=== PATIENT | female | born 1985 | race Caucasian/White ===

== ENCOUNTER 2018-04-17 00:16 | Emergency (ER) | payer SELFPAY ==
--- NOTE | 2018-04-17 03:47 | EDM.PDOCBH ---
<Micaela Oliveira Keon - Last Filed: 04/17/18 06:55> ED HPI GENERAL MEDICAL PROBLEM - General Chief Complaint: Behavioral/Psych Stated Complaint: [facility] Time Seen by Provider: 04/17/18 00:37 Source of Information: Reports: Patient History Limitations: Reports: No Limitations - History of Present Illness INITIAL COMMENTS - FREE TEXT/NARRATIVE: Patient is a 32-year-old who presents to emergency department with suicidal thoughts. Patient states she had been visiting a friend in an [place] she spent 9-10 days in the psychiatric unit there for hallucinations. Patient was on a bus on her way back home to [place] when she told the regional flatbed truck driver she was feeling suicidal. The regional flatbed truck driver called 911 and she was brought to the emergency department. He had patient states she is hearing voices and those places are reviewed repeatedly saying her name. She states she feels like she would kill herself if she left here. She has a plan and that she would take all of her psychiatric medications. Patient has had 1 prior suicide attempt. Patient denies being homicidal at this time. Patient denies any fever chills headache chest pain shortness of breath coughing abdominal pain nausea vomiting diarrhea rashes itches or new joint pains. Patient has a known complicated psychiatric history including PTSD depression bipolar disorder as diagnoses. Onset: Gradual Duration: Week(s):, Intermittent Improves with: Reports: Medication Context: Reports: Other (see hpi) Associated Symptoms: Reports: No Other Symptoms - Related Data Allergies Allergy/AdvReac Type Severity Reaction Status Date / Time fluphenazine [From Prolixin] Allergy Other Verified 04/17/18 00:22 haloperidol [From Haldol] Allergy Other Verified 04/17/18 00:22 hydroxyzine [From Vistaril] Allergy Other Verified 04/17/18 00:22 olanzapine [From Zyprexa] Allergy Other Verified 04/17/18 00:22 risperidone Allergy Other Verified 04/17/18 00:22 Home Meds: Home Meds ARIPiprazole [Abilify] 20 mg PO DAILY 04/17/18 [History] Fluconazole [Diflucan] 150 mg PO ONETIME 04/17/18 [History] LORazepam [Ativan] 2 mg PO DAILY 04/17/18 [History] Sulfamethoxazole/Trimethoprim [Bactrim Ds Tablet] 1 each PO Q12HR 10 Days #20 tablet 04/17/18 [Rx] traZODone HCl [Trazodone HCl] 200 mg PO BEDTIME 04/17/18 [History] Past Medical History Psychiatric History: Reports: Anxiety, Bipolar, Depression, PTSD - Past Surgical History Dermatological Surgical History: Reports: Skin Graft Social & Family History - Family History Family Medical History: Noncontributory - Tobacco Use Smoking Status *Q: Current Every Day Smoker Years of Tobacco use: 3 Packs/Tins Daily: 0.5 - Caffeine Use Caffeine Use: Reports: None - Recreational Drug Use Recreational Drug Use: No ED ROS GENERAL - Review of Systems Review Of Systems: See Below Constitutional: Reports: No Symptoms HEENT: Reports: No Symptoms Respiratory: Reports: No Symptoms Cardiovascular: Reports: No Symptoms Endocrine: Reports: No Symptoms GI/Abdominal: Reports: No Symptoms : Reports: No Symptoms Musculoskeletal: Reports: No Symptoms Skin: Reports: No Symptoms Neurological: Reports: No Symptoms Psychiatric: Reports: Anxiety, Depression, Suicidal Ideation. Denies: Homicidal Ideation Hematologic/Lymphatic: Reports: No Symptoms Immunologic: Reports: No Symptoms ED EXAM, BEHAVIORAL HEALTH - Physical Exam Exam: See Below Exam Limited By: No Limitations General Appearance: Alert, WD/WN, No Apparent Distress Eye Exam: Bilateral Eye: PERRL Ears: Normal External Exam, Normal Canal, Hearing Grossly Normal Nose: Normal Inspection, No Blood Throat/Mouth: Normal Inspection, Normal Lips, Normal Gums, Normal Oropharynx, Normal Voice, No Airway Compromise Head: Atraumatic, Normocephalic Neck: Normal Inspection, Supple, Non-Tender, Full Range of Motion Respiratory/Chest: No Respiratory Distress, Lungs Clear, Normal Breath Sounds, No Accessory Muscle Use, Chest Non-Tender Cardiovascular: Normal Peripheral Pulses, Regular Rate, Rhythm, No Edema, No JVD , No Murmur GI/Abdominal: Normal Bowel Sounds, Soft, Non-Tender, No Organomegaly, No Distention, No Abnormal Bruit, No Mass Back Exam: Normal Inspection, Full Range of Motion, NT Extremities: Normal Inspection, Normal Range of Motion, Non-Tender, Normal Capillary Refill, No Pedal Edema Neurological: Alert, Normal Mood/Affect, CN II-XII Intact, Normal Cognition, Normal Gait, Normal Reflexes, No Motor/Sensory Deficits, Oriented x 3 Psychiatric: Alert, Oriented, Depressed Mood, Flat Affect, Withdrawn, Suicidal Plan, Suicidal Thoughts Skin Exam: Warm, Normal color COURSE, BEHAVIORAL HEALTH COMP - Course Vital Signs: Last Vital Signs Temp 36.3 C 04/17/18 09:22 Pulse 59 L 04/17/18 09:22 Resp 12 04/17/18 09:22 BP 116/70 04/17/18 09:22 Pulse Ox 96 04/17/18 09:22 Orders, Labs, Meds: Active Orders 24 hr Category Date Time Status CULTURE URINE [RM] Stat Lab 04/17/18 01:03 Received DRUG SCREEN, URINE [URCHEM] Stat Lab 04/17/18 02:05 Ordered UA W/MICROSCOPIC [URIN] Stat Lab 04/17/18 02:05 Ordered Laboratory Tests 04/17/18 04/17/18 04/17/18 Range/Units 00:47 00:47 00:47 WBC 9.79 (3.98-10.04) K/mm3 RBC 3.74 L (3.98-5.22) M/mm3 Hgb 11.7 (11.2-15.7) gm/L Hct 33.2 L (34.1-44.9) % MCV 88.8 (79.4-94.8) fl MCH 31.3 (25.6-32.2) pg MCHC 35.2 (32.2-35.5) g/dl RDW Std Deviation 41.3 (36.4-46.3) fL Plt Count 215 (182-369) K/mm3 MPV 8.9 L (9.4-12.3) fl Neut % (Auto) 58.8 (34.0-71.1) % Lymph % (Auto) 31.4 (19.3-51.7) % [place] % (Auto) 6.5 (4.7-12.5) % Eos % (Auto) 1.3 (0.7-5.8) Baso % (Auto) 0.3 (0.1-1.2) % Neut # (Auto) 5.75 (1.56-6.13) K/mm3 Lymph # (Auto) 3.07 (1.18-3.74) K/mm3 [place] # (Auto) 0.64 H (0.24-0.36) K/mm3 Eos # (Auto) 0.13 (0.04-0.36) K/mm3 Baso # (Auto) 0.03 (0.01-0.08) K/mm3 Manual Slide Review Normal smear Sodium 139 (136-145) mEq/L Potassium 3.5 (3.5-5.1) mEq/L Chloride 103 (98-107) mEq/L Carbon Dioxide 25 (21-32) mEq/L Anion Gap 14.5 (5-15) BUN 13 (7-18) mg/dL Creatinine 1.0 (0.55-1.02) mg/dL Est Cr Clr Drug Dosing 72.68 mL/min Estimated GFR (MDRD) > 60 (>60) mL/min BUN/Creatinine Ratio 13.0 L (14-18) Glucose 168 H (74-106) mg/dL Calcium 8.8 (8.5-10.1) mg/dL Total Bilirubin 0.2 (0.2-1.0) mg/dL AST 18 (15-37) U/L ALT 41 (14-59) U/L Alkaline Phosphatase 81 (46-116) U/L Total Protein 7.3 (6.4-8.2) g/dl Albumin 3.6 (3.4-5.0) g/dl Globulin 3.7 gm/dL Albumin/Globulin Ratio 1.0 (1-2) TSH 3rd Generation 3.526 (0.358-3.74) uIU/mL HCG, Qual (NEGATIVE) Urine Color (Yellow) Urine Appearance (Clear) Urine pH (5.0-8.0) Ur Specific [place] (1.005-1.030) Urine Protein (Negative) Urine Glucose (UA) (Negative) Urine Ketones (Negative) Urine Occult Blood (Negative) Urine Nitrite (Negative) Urine Bilirubin (Negative) Urine Urobilinogen (0.2-1.0) Ur Leukocyte Esterase (Negative) Urine RBC (0-5) /hpf Urine WBC (0-5) /hpf Ur Epithelial Cells (0-5) /hpf Urine Bacteria (FEW) /hpf Urine Mucus (FEW) /hpf Urine Other Urine Opiates Screen (NEGATIVE) Ur Buprenorphine Scrn (NEGATIVE) Ur Oxycodone Screen (NEGATIVE) Urine Methadone Screen (NEGATIVE) Ur Propoxyphene Screen (NEGATIVE) Ur Barbiturates Screen (NEGATIVE) Ur Tricyclics Screen (NEGATIVE) Ur Phencyclidine Scrn (NEGATIVE) Ur Amphetamine Screen (NEGATIVE) U Methamphetamines Scrn (NEGATIVE) U Benzodiazepines Scrn (NEGATIVE) U Cocaine Metab Screen (NEGATIVE) U Marijuana (THC) Screen (NEGATIVE) Ethyl Alcohol 0.00 (0.00) gm% 04/17/18 04/17/18 04/17/18 Range/Units 00:47 02:05 02:05 WBC (3.98-10.04) K/mm3 RBC (3.98-5.22) M/mm3 Hgb (11.2-15.7) gm/L Hct (34.1-44.9) % MCV (79.4-94.8) fl MCH (25.6-32.2) pg MCHC (32.2-35.5) g/dl RDW Std Deviation (36.4-46.3) fL Plt Count (182-369) K/mm3 MPV (9.4-12.3) fl Neut % (Auto) (34.0-71.1) % Lymph % (Auto) (19.3-51.7) % [place] % (Auto) (4.7-12.5) % Eos % (Auto) (0.7-5.8) Baso % (Auto) (0.1-1.2) % Neut # (Auto) (1.56-6.13) K/mm3 Lymph # (Auto) (1.18-3.74) K/mm3 [place] # (Auto) (0.24-0.36) K/mm3 Eos # (Auto) (0.04-0.36) K/mm3 Baso # (Auto) (0.01-0.08) K/mm3 Manual Slide Review Sodium (136-145) mEq/L Potassium (3.5-5.1) mEq/L Chloride (98-107) mEq/L Carbon Dioxide (21-32) mEq/L Anion Gap (5-15) BUN (7-18) mg/dL Creatinine (0.55-1.02) mg/dL Est Cr Clr Drug Dosing mL/min Estimated GFR (MDRD) (>60) mL/min BUN/Creatinine Ratio (14-18) Glucose (74-106) mg/dL Calcium (8.5-10.1) mg/dL Total Bilirubin (0.2-1.0) mg/dL AST (15-37) U/L ALT (14-59) U/L Alkaline Phosphatase (46-116) U/L Total Protein (6.4-8.2) g/dl Albumin (3.4-5.0) g/dl Globulin gm/dL Albumin/Globulin Ratio (1-2) TSH 3rd Generation (0.358-3.74) uIU/mL HCG, Qual Negative (NEGATIVE) Urine Color Yellow (Yellow) Urine Appearance Slt cloudy H (Clear) Urine pH 6.0 (5.0-8.0) Ur Specific [place] 1.025 (1.005-1.030) Urine Protein Negative (Negative) Urine Glucose (UA) Negative (Negative) Urine Ketones Negative (Negative) Urine Occult Blood Negative (Negative) Urine Nitrite Positive H (Negative) Urine Bilirubin Negative (Negative) Urine Urobilinogen 0.2 (0.2-1.0) Ur Leukocyte Esterase Trace H (Negative) Urine RBC Not seen (0-5) /hpf Urine WBC 5-10 H (0-5) /hpf Ur Epithelial Cells 0-5 (0-5) /hpf Urine Bacteria Many H (FEW) /hpf Urine Mucus Not seen (FEW) /hpf Urine Other See note Urine Opiates Screen Negative (NEGATIVE) Ur Buprenorphine Scrn Negative (NEGATIVE) Ur Oxycodone Screen Negative (NEGATIVE) Urine Methadone Screen Negative (NEGATIVE) Ur Propoxyphene Screen Negative (NEGATIVE) Ur Barbiturates Screen Negative (NEGATIVE) Ur Tricyclics Screen Negative (NEGATIVE) Ur Phencyclidine Scrn Negative (NEGATIVE) Ur Amphetamine Screen Negative (NEGATIVE) U Methamphetamines Scrn Presumptive positive H (NEGATIVE) U Benzodiazepines Scrn Presumptive positive H (NEGATIVE) U Cocaine Metab Screen Negative (NEGATIVE) U Marijuana (THC) Screen Negative (NEGATIVE) Ethyl Alcohol (0.00) gm% Medications Discontinued Medications Generic Name Dose Route Start Last Admin Trade Name Freq PRN Reason Stop Dose Admin Aripiprazole 20 mg 04/17/18 08:30 04/17/18 08:28 Abilify PO 04/17/18 08:31 20 mg ONETIME ONE Administration Lorazepam 2 mg 04/17/18 07:53 04/17/18 08:17 Ativan PO 04/17/18 07:54 2 mg ONETIME ONE Administration Trimethoprim/Sulfamethoxazole 1 tab 04/17/18 09:00 04/17/18 08:18 Septra Ds PO 1 tab Q12HR FRANK Administration Medical Clearance: 04/17/18 06:56 Patient had physical exam history laboratory studies completed in this emergency department. She is medically clear for psychiatric admission. Multiple calls have been made to [facility] none of which have a bed. [facility] has also been contacted. The social services aide Jyoti Salinas, she states they did not have any adult female beds available. We will continue to search for a bed. Departure - Departure Time of Disposition: 05:20 Disposition: Home, Self-Care 01 Condition: Fair Clinical Impression: Depressive disorder, Post traumatic stress disorder (PTSD), Anxiety Urinary tract infection Qualifiers: Urinary tract infection type: acute cystitis - Discharge Information *PRESCRIPTION DRUG MONITORING PROGRAM REVIEWED*: Not Applicable *COPY OF PRESCRIPTION DRUG MONITORING REPORT IN PATIENT NOE: Not Applicable Prescriptions: Sulfamethoxazole/Trimethoprim [Bactrim Ds Tablet] 1 each PO Q12HR 10 Days #20 tablet Instructions: Generalized Anxiety Disorder, Adult, Persistent Depressive Disorder, Adult, Living With Post-Traumatic Stress Disorder Referrals: PCP,None [Primary Care Provider] - Forms: ED Department Discharge Additional Instructions: Evaluation the emergency room today in regards to increased suicidal ideation and auditory hallucinations while traveling on the bus from [facility] back towards [facility]. History suggests recent 10 day stay in the hospital in [place] for similar type problems. Urine tested positive for methamphetamines today suggesting methamphetamine use recently. This likely cause a good deal of your current problems. History suggests that you continue your Abilify 20 mg once daily in the morning with 2 mg of Ativan 3 times daily as previously prescribed. The only finding today on today's lab tests suggested a possible low-grade urinary tract infection. You're therefore placed on Macrobid 100mg twice daily for the enext 7 days to clear up infection. . - My Orders Last 24 Hours: My Active Orders 04/17/18 01:03 CULTURE URINE [RM] Stat - Assessment/Plan Last 24 Hours: My Active Orders 04/17/18 01:03 CULTURE URINE [RM] Stat <Sarabjit Dejesus - Last Filed: 04/17/18 13:26> COURSE, BEHAVIORAL HEALTH COMP - Course Medical Clearance: Care assumed from Dr. Oliveira at change of shift. Patient essentially really looking for placement for this 32-year-old female with auditory hallucinations likely related to substance abuse such as methamphetamines. It's unclear whether she has a true diagnosis of a schizophrenia. It appears that she is complaining of this time being depressed and feeling suicidal. She does admit to intermittent auditory hallucinations which essentially are calling her bad names but not telling her to kill herself. Urine drug screen is positive for methamphetamines. Okay for placement for her. 04/17/18 07:55 I have spoken with the [facility] crisis management personnel and they indicated they may well have a bed for this lady at the [facility]. He will build take her even if she is committed apparently. I will go ahead and give her normal dosages medications this morning 2 mg of Ativan by mouth with Abilify 20 mg by mouth. 04/17/18 08:15 patient is willing to go to [facility] for care for the next few days for rest bite. Hopefully when she gets back her medications and away from any potential substances of abuse her condition will stabilize and she can get back on the bus and travel back towards [place]. Caseworkers from [facility] will come to pick her up around 0830 hrs. Departure - Departure Time of Disposition: 09:20 - Discharge Information *PRESCRIPTION DRUG MONITORING PROGRAM REVIEWED*: No *COPY OF PRESCRIPTION DRUG MONITORING REPORT IN PATIENT NOE: No - My Orders Last 24 Hours: My Active Orders 04/17/18 01:03 CULTURE URINE [RM] Stat - Assessment/Plan Last 24 Hours: My Active Orders 04/17/18 01:03 CULTURE URINE [RM] Stat
[2018-04-17] MEDS ORDERED: LORazepam 1 MG Tab PO ONE (07:53)
[2018-04-17] MEDS ORDERED: ARIPiprazole 10 MG Tab PO ONE (08:30)
[2018-04-17] MEDS ORDERED: Sulfamethoxazole/Trimethoprim 800-160 MG Tab PO SCH (09:00)
== END 2018-04-17 09:25 | disposition home or self-care (01) ==
LOC: JD.ED 00:16
DX: F43.10 Post-traumatic stress disorder, unspecified (principal); F41.9 Anxiety disorder, unspecified; N30.00 Acute cystitis without hematuria; F32.9 Major depressive disorder, single episode, unspecified; F17.210 Nicotine dependence, cigarettes, uncomplicated; Z88.8 Allergy status to other drugs, medicaments and biological substances; Z79.899 Other long term (current) drug therapy
CPT/HCPCS: 36415; 80053; 80306; 81001; 84443; 84703; 85025; 87086; 99285; A9270; G0480